=== PATIENT | female | born 1985 ===

== ENCOUNTER 2018-05-16 06:25 | Inpatient (IN) | payer OTHER ==
[2018-05-16 07:34] VITALS: BMI 29.2
[2018-05-16] MEDS ORDERED: CITRIC ACID/SODIUM CITRATE 30 ML UNIT-DOSE CUP PO ONE (07:45)
[2018-05-16] MEDS ORDERED: ELECTROLYTE-148 SOLN 500 ML IV ONE ×2 (07:45→08:15)
[2018-05-16] MEDS ORDERED: morphine SULFATE/Preservative Free 0.5 MG/ML (1cc Syringe) ONE (08:15)
[2018-05-16] MEDS ORDERED: PHENYLEPHRINE HCL 10 MG/1 ML SINGLE DOSE VIAL ONE (08:15)
--- NOTE | 2018-05-16 08:16 | HP ---
Past Medical History - Primary Care Physician PCP:: Nataly Barahona - Admission Chief Complaint: 33 yrs 40.3 weeks, previous c/section is admitted for repeat c/section History of Present Illness: pt is drop in from [place] . she brought her PNC records pt wanted trial, since she is postterm now , cx close, head is floating , cx is not favorable for vag delivery , she requests for repeat c/s PNRecords review sono 10/29/17 12.5 wks, edc assigned by sono 05/13/18 repeat sono 03/10/18 27.1/7 wks -wnl pt states she had last sono 05/05/18 labs 04/15/18 : GBS neg, gc/ct neg, Hiv neg, rpr nrHbsag neg , h/h 10.8/33.3 , Plt 192 U/A 1 + protein 01/31/18 Lyme titer neg , 1 Hr Gtt 118 12/09/17 Cherry pos, BV neg, Hiv neg, Lead neg 10/28/17 gc/ct neg , CF screen neg, O Pos, Hgb a1c 5.5 , rpr nr, Rubella immune , Hbsag neg, HgbA1 A2 , Sickle neg , Pap wnl, gc/ct neg , hpv neg History Source: Patient, Medical Record Limitations to Obtaining History: No Limitations - Past Medical History NETSUITE CONSULTANT: No: Migraine, Seizure Cardiovascular: No: HTN, Murmur Pulmonary: No: Asthma Gastrointestinal: Yes: Other (none known) Hepatobiliary: No: Hepatitis B, Hepatitis C Renal/: No: UTI ...: 3 ...Para: 1 (primary lftc/s 07/2011 9'5" at [facility], due to macrosomoa ) ...Term: 1 ...: 0 ...Spon : 0 ...Induced : 1 ...Multiple Gestation: 0 ...LMP: 08/06/17 ... Weeks Gestation by Dates: 40.1 ...EDC by Dates: 05/15/18 ...EDC by Sono: 05/13/18 (40.3 weeks by sono) Heme/Onc: Yes: Anemia (rx po Iron & PNV) Infectious Disease: No: AIDS, STD's Psych: No: Addictions, Anxiety, Bipolar, Depression, Panic, Psychosis, Schizophrenia, Other Endocrine: No: Diabetes Mellitus, Hypothyroidism - Past Surgical History Hx Myomectomy: No Hx Transabdominal Cerclage: No Additional Surgical History: left breast cystectomy,. left wrist ligament repair - Smoking History Smoking history: Never smoked Have you smoked in the past 12 months: No - Alcohol/Substance Use Hx Alcohol Use: No History of Substance Use: reports: None Home Medications - Allergies Allergies/Adverse Reactions: Allergies Allergy/AdvReac Type Severity Reaction Status Date / Time No Known Allergies Allergy Verified 05/13/18 15:20 - Home Medications Home Medications: Ambulatory Orders Ferrous Sulfate [Feosol] 1 tab PO DAILY 05/13/18 Tablet 1 tab PO DAILY 05/13/18 Physical Exam - Maternity Constitutional: Yes: Well Nourished, Obese Eyes: Yes: WNL HENT: Yes: WNL, Normocephalic Neck: Yes: WNL Cardiovascular: Yes: WNL, Regular Rate and Rhythm Lungs: Clear to auscultation Breast(s): Yes: WNL. No: Mass - Abdominal Exam/OB Fundal Height: 38 Number of Fetuses: Single Presentation: Vertex Regularity: Irregular Intensity: Unaware Monitor Mode: External (1) Heart Rate (range): 130-140 Heart Rate Location: Midline Category: I Accelerations: Uniform Decelerations: None - Vaginal Exam/OB Vaginal Bleediing: No Speculum Exam: No Dilatation (cm): close Effacement (%): unefface Amniotic Membrane Status: Intact Presentation: Vertex/Position Station: -3 - Physical Exam Musculoskeletal: Yes: WNL Extremities: Yes: WNL. No: Calf Tenderness Edema: Yes Edema: LLE: 1+, RLE: 1+ Integumentary: Yes: Incision (old pfannensteil scar) Deep Tendon Reflex Grade: Normal +2 ...Motor Strength: WNL Psychiatric: Yes: WNL, Alert, Oriented - Labs Lab Results: Laboratory Tests 05/13/18 05/13/18 05/13/18 16:00 16:00 16:00 WBC 7.9 Hgb 11.6 Hct 33.6 Plt Count 172 PT with INR 11.70 INR 0.99 PTT (Actin FS) 25.4 Sodium Potassium Chloride Carbon Dioxide BUN Creatinine Random Glucose Calcium Total Bilirubin AST ALT RPR Titer Nonreactive Hepatitis C Antibody 05/13/18 05/14/18 16:00 11:00 WBC Hgb Hct Plt Count PT with INR INR PTT (Actin FS) Sodium 138 Potassium 4.0 Chloride 107 Carbon Dioxide 22 BUN 6 L Creatinine 0.6 Random Glucose 103 Calcium 8.1 L Total Bilirubin 0.5 AST 16 ALT 16 RPR Titer Hepatitis C Antibody <0.1 Hemorrhage Risk Assessment - Risk Factors Medium Risk Factors: Yes: Prior , uterine surgery,or multiple laparotomies Risk Score: 1 Risk Level: Medium Risk Problem List - Problems (1) Post term Code(s): O48.0 - POST-TERM Qualifiers: Post-term type: 40-42 weeks gestation Qualified Code(s): O48.0 - Post-term (2) Previous section Code(s): Z98.891 - HISTORY OF UTERINE SCAR FROM PREVIOUS SURGERY Assessment/Plan 33 yrs , 40.3 weeks, previous c/section, GBS neg, drop in from [place] , not in labor for repeat C/Section . Plan Repeat LFT c/section Pt requests for placenta to be given to her .
[2018-05-16] MEDS ORDERED: OXYTOCIN 20 UNITS in 0.9% NS 40 UNIT/2,000 ML INFUS.BAG IV ONE (08:18)
[2018-05-16] MEDS ORDERED: ONDANSETRON 4 MG/2 ML VIAL IVPUSH PRN (08:31)
[2018-05-16] MEDS ORDERED: ACETAMINOPHEN 325 MG TABLET (FP) PO PRN (08:31)
[2018-05-16] MEDS: OXYTOCIN 20 UNITS in 0.9% NS 20 UNIT/1,000 ML INFUS.BAG IV SCH (08:45)
[2018-05-16] MEDS ORDERED: MIDAZOLAM HCL 2 MG/2 ML SINGLE DOSE VIAL ONE (08:53)
[2018-05-16 09:52] LABS: ARTERIAL BLD GAS O2 SATURATION 43.1 % (90-98.9); ARTERIAL BLOOD GAS BASE EXCESS -2.1 meq/l (-2-2); ARTERIAL BLOOD GAS PCO2 42.8 mmHg (35-45); ARTERIAL BLOOD GAS PO2 23.5 mmHg (80-100); ARTERIAL BLOOD GAS pH 7.35 (7.35-7.45)
[2018-05-16 09:55] LABS: VENOUS PH 7.35 (7.32-7.42); VENOUS PO2 26.8 mmHg (28-48)
[2018-05-16] MEDS ORDERED: METHYLERGONOVINE MALEATE 0.2 MG/1 ML AMP IM PRN (10:07)
--- NOTE | 2018-05-16 10:19 | OP ---
Operative Note - Note: Operative Date: 05/16/18 Pre-Operative Diagnosis: 40.3 weeks, previous c/section, Operation: Repeat LFTC/Section Findings: 8.43 AM, Baby Boy, Vx, Lot position, 9/9, wT 8'14", Ht 20" both tubes & ovaries normal Darren Horton Furnace Erector present in the OR Surgeon: Nataly Barahona Fruit And Vegetable Parer: Artis Morel Anesthesiologist/TAX EXAMINING TECHNICIAN: Lino Lee Anesthesia: Spinal Specimens Removed: cord segment for cord gas. cord blood. placenta Estimated Blood Loss (mls): 600 Drains, Volume Out (mls): 100 (cash color , bray output) Fluid Volume Replaced (mls): 1,700 (2gm Iv Ancef prior to incision ) Operative Report Dictated: Yes
--- NOTE | 2018-05-16 10:30 | PN ---
Delivery - Delivery Section: Repeat, Low Flap Transverse Type of Anesthesia: Spinal EBL (cc): 600 (intraop bray out put 100 ml cash color ) Delivery, Single - Stages of Labor Date of Delivery: 05/23/18 Time of Delivery: 08:43 Date Placenta Delivered: 05/16/18 Time Placenta Delivered: 08:45 - Condition of Social Services/Special Service Representative Present: Yes Name: Sol Ma Infant Gender: Male Weight: 8 lb 14 oz Position: Left, OT Total Hours ROM (Hrs/Mins): 2 min - 1 Minute Total Score: 9 5 Minutes Total Score: 9 - Feeding Plan Initial Plan: Exclusive throughout hospitalization Remarks - Remarks Remarks: 33 Yrs , 40.3 weeks , previous c/section , gbs neg, hbsag neg, hep -c neg hiv neg . PNC in [place] Indication : posterm (40.3 weeks ) , previous c/section Intraop course uneventful
--- NOTE | 2018-05-16 10:59 | OP ---
DATE OF OPERATION: 05/16/2018 PREOPERATIVE DIAGNOSES: 40.3 weeks, previous section. OPERATION: Repeat low flap transverse section. SURGEON: Nataly Barahona MD EXPANDER MACHINE OPERATOR: ESTHER Lauren ANESTHESIOLOGIST: Lino Lee MD ANESTHESIA: Spinal. RADIO PROGRAM DIRECTOR: Sol Ma MD FINDINGS: This is a 33-year-old 3, para 1-0-1-1 not in labor and she is post term. Requested repeat section. PROCEDURE: Abdomen was shaved, prepped. Chawla catheter was placed. She was taken to the operating room table and spinal anesthesia was given. She was placed in supine position. Abdomen was painted and draped in usual manner. Pfannenstiel incision was made. The skin, subcutaneous tissue, anterior rectus sheath were incised transversely. Bleeding points were clamped and cauterized. Rectus muscle was from the rectus sheath. Parietal peritoneum was opened vertically. Low flap of the peritoneum was incised transversely. Then lower uterine segment was incised transversely. Amniotic fluid was clear and the baby was delivered at 8:43 a.m. from LOT position. was 9, 9 and baby's weight was 8 pounds and 14 ounces. Cord was clamped, cut. Cord blood was collected. Cord segment was sent for the ABG also. Placenta was removed completely with the membranes. The uterine cavity was cleaned and uterine incision was closed in 2 layers. First layer was closed with a continuous locking Biosyn 0 suture. Second layer was closed with a continuous intermittently locking Biosyn 0 suture. Hemostasis was achieved and the bladder peritoneum was closed with interrupted sutures with Biosyn 0 suture. Both tubes and ovaries were normal and sponge and instrument count was correct. Irrigation was done. Then the abdominal cavity was closed. Peritoneum parietal was closed with a Vicryl 0 suture. Continuous sutures were taken. Hemostasis was checked underneath the rectus sheath flap. Anterior rectus sheath was closed with 0 Vicryl suture. Continuous sutures were taken. Subcutaneous tissue hemostasis was checked and verified. Skin was mobilized from underneath scar. Subcutaneous tissue was approximated with Vicryl 0 suture. Interrupted sutures were taken. The skin was approximated with staple. Pressure dressing was given. Blood clots were removed from the vagina. Estimated blood loss was 600 mL. Urine output was 100 mL. It was cash colored and she received 2 g of IV Ancef prior to the incision. Emerita [id number]
[2018-05-16] MEDS ORDERED: IBUPROFEN 800 MG/8 ML IJ IVPB ONE (12:20)
[2018-05-16] MEDS: IBUPROFEN 800 MG/8 ML IJ IVPB PRN ×2 (12:31→20:07)
[2018-05-16] MEDS: CEFAZOLIN 1 GM/D5W 1 GM/50 ML BAG IVPB SCH (18:04)
[2018-05-16] MEDS: FERROUS SO4 325 MG TABLET (FP) PO SCH (19:25)
[2018-05-17] MEDS: ACETAMINOPHEN 325 MG TABLET (FP) PO PRN ×6 (01:08→22:16)
[2018-05-17] MEDS: SIMETHICONE 80 MG TAB.CHEW (FP) PO PRN ×6 (01:09→22:15)
[2018-05-17] MEDS: IBUPROFEN 600 MG TABLET (FP) PO PRN ×6 (01:09→22:16)
[2018-05-17] MEDS: CEFAZOLIN 1 GM/D5W 1 GM/50 ML BAG IVPB SCH ×2 (01:09→09:53)
[2018-05-17] MEDS: OXYTOCIN 20 UNITS in 0.9% NS 20 UNIT/1,000 ML INFUS.BAG IV SCH ×2 (01:34→20:10)
--- NOTE | 2018-05-17 05:56 | PN ---
Post Progress Note - Subjective Subjective: c/o painscale 01/06 she has not voided after bray catheter is taken out not passing flatus yet Post Day: 1 Type of Delivery: Repeat C/S Vital Signs: Vital Signs Temperature 97.8 F 05/17/18 02:00 Pulse Rate 88 05/17/18 02:00 Respiratory Rate 05/17/18 05:00 Blood Pressure 99/68 05/17/18 02:00 O2 Sat by Pulse Oximetry (%) 100 05/16/18 10:40 Breast Exam: Yes: Soft, Other (BF ). No: Engorged Uterus: Yes: Fundus Firm, Fundus below umbilicus, Non-tender Incision: Yes: Dressing dry and intact. No: Redness, Oozing Abdomen/GI: Yes: Abdomen soft (BS active ), Tolerating PO (clear fluid ). No: Abdominal Distention, Tender, Passing flatus Lochia: Yes: Rubra Lochia, amount: Moderate Extremities: Yes: Calves non-tender. No: Edema Perineum: Yes: Intact Activity: Other (pt oob to bathroom once ) Other Findings, Remarks: rs cta I/O , adequate urine out put 3150 ml Problem List - Problems (1) Post term Code(s): O48.0 - POST-TERM Qualifiers: Post-term type: 40-42 weeks gestation Qualified Code(s): O48.0 - Post-term (2) Previous section Code(s): Z98.891 - HISTORY OF UTERINE SCAR FROM PREVIOUS SURGERY (3) delivery delivered Code(s): O82 - ENCOUNTER FOR DELIVERY WITHOUT INDICATION (4) Encounter for assessment Code(s): Z39.2 - ENCOUNTER FOR ROUTINE FOLLOW-UP Assessment/Plan stable s/p repeat c/s Plan encourage po fluids, deep breathing, ambulation post op cbc today pending
[2018-05-17] MEDS: oxyCODONE HCL 5 MG TABLET PO PRN ×6 (06:05→22:16)
[2018-05-17 08:16] LABS: BASO % 0.5 % (0-2.0); EOS % 0.6 % (0-4.5); HEMATOCRIT 29.9 % (32.4-45.2); HEMOGLOBIN 9.9 GM/dL (10.7-15.3); MCH 29.8 pg (25.7-33.7); MCHC 33.1 g/dl (32.0-36.0); MEAN CELL VOLUME 90.1 fl (80-96); MEAN PLT VOLUME 8.9 fl (7.5-11.1); MONO % 8.3 % (3.8-10.2); NEUT % 78.6 % (42.8-82.8); PLATELET COUNT 122 K/MM3 (134-434); RBC 3.32 M/mm3 (3.60-5.2); RDW 14.8 % (11.6-15.6); WHITE BLOOD COUNT 11.8 K/mm3 (4.0-10.0)
[2018-05-17] MEDS: FERROUS SO4 325 MG TABLET (FP) PO SCH ×2 (09:31→17:46)
[2018-05-17] MEDS: ENOXAPARIN NA (PORCINE) 40 MG/0.4 ML DISP.SYRIN SQ SCH ×2 (09:54→10:00)
[2018-05-17] MEDS: PRENATAL VITAMINS W/ FOLIC ACID TABLET (FP) PO SCH (09:55)
[2018-05-17] MEDS: BISACODYL 10 MG SUPP.RECT RC PRN (10:03)
--- NOTE | 2018-05-17 14:12 | PN ---
Progress Note, Physician Chief Complaint: s/p c section under spinal anesthesia post op day one History of Present Illness: duramorph for post op pain control with spinal anesthesia - Current Medication List Current Medications: Active Medications Acetaminophen (Tylenol -) 650 mg PO Q4H PRN PRN Reason: PAIN LEVEL 1-3 Last Admin: 05/17/18 10:04 Dose: 650 mg Bisacodyl (Dulcolax Suppository -) 10 mg RC PRN PRN PRN Reason: CONSTIPATION Last Admin: 05/17/18 10:03 Dose: 10 mg Diphenhydramine HCl (Benadryl Injection -) 25 mg IVPUSH Q4H PRN PRN Reason: Pruritis Last Admin: 05/17/18 01:34 Dose: 25 mg Enoxaparin Sodium (Lovenox -) 40 mg SQ DAILY [facility] Last Admin: 05/17/18 10:00 Dose: Not Given Ferrous Sulfate (Feosol -) 325 mg PO BIDWM [facility] Last Admin: 05/17/18 09:31 Dose: Not Given Cefazolin Sodium (Ancef 1 Gm Premixed Ivpb -) 1 gm in 50 mls @ 100 mls/hr IVPB Q8H-IV ALTAF Stop: 05/17/18 17:59 Last Admin: 05/17/18 09:53 Dose: 100 mls/hr Oxytocin/Sodium Chloride (Normal Saline+20 Units Oxytocin -) 20 unit in 1,000 mls @ 125 mls/hr IV ASDIR [facility] Last Admin: 05/17/18 01:34 Dose: 125 mls/hr Ibuprofen (Motrin -) 600 mg PO Q4H PRN PRN Reason: PAIN 1-3;IF TYLENOL NT WRK Last Admin: 05/17/18 10:04 Dose: 600 mg Methylergonovine Maleate (Methergine Injection -) 0.2 mg IM Q4H PRN PRN Reason: Excessive Bleeding (L&D) Ondansetron HCl (Zofran Injection) 4 mg IVPUSH Q4H PRN PRN Reason: NAUSEA Oxycodone HCl (Roxicodone -) 5 mg PO Q4H PRN PRN Reason: PAIN LEVEL 4 - 6 Last Admin: 05/17/18 10:03 Dose: 5 mg Oxycodone HCl (Roxicodone -) 10 mg PO Q4H PRN PRN Reason: PAIN LEVEL 7 - 10 Multivit/Folic Acid/Iron ( Vitamins (Sjr) -) 1 tab PO DAILY ALTAF Last Admin: 05/17/18 09:55 Dose: Not Given Senna/Docusate Sodium (Pericolace -) 2 tablet PO HS PRN PRN Reason: CONSTIPATION Simethicone (Mylicon -) 80 mg PO Q4H PRN PRN Reason: GAS Last Admin: 05/17/18 10:05 Dose: 80 mg - Objective Vital Signs: Vital Signs Temperature 98.5 F 05/17/18 06:00 Pulse Rate 87 05/17/18 06:00 Respiratory Rate 18 05/17/18 06:00 Blood Pressure 114/74 05/17/18 06:00 O2 Sat by Pulse Oximetry (%) 100 05/16/18 10:40 Constitutional: Yes: Well Nourished Cardiovascular: Yes: WNL Respiratory: Yes: WNL Gastrointestinal: Yes: WNL Labs: CBC, BMP 05/17/18 07:15 Assessment/Plan No acute complications of anesthesia. Dept of anesthesia will sign off care at this time.
[2018-05-17] MEDS ORDERED: ZOLPIDEM TARTRATE 5 MG TABLET PO PRN (20:50)
[2018-05-17] MEDS: SENNOSIDES/DOCUSATE COMBO (SENNA PLUS) TABLET (UD) PO PRN (22:15)
[2018-05-18] MEDS: ACETAMINOPHEN 325 MG TABLET (FP) PO PRN ×2 (06:17→21:09)
[2018-05-18] MEDS: IBUPROFEN 600 MG TABLET (FP) PO PRN ×5 (06:17→21:09)
[2018-05-18] MEDS: oxyCODONE HCL 5 MG TABLET PO PRN ×5 (06:17→21:09)
[2018-05-18] MEDS: SIMETHICONE 80 MG TAB.CHEW (FP) PO PRN ×4 (06:26→21:08)
--- NOTE | 2018-05-18 06:41 | PN ---
Post Progress Note - Subjective Subjective: c/o pain scale 10/10 . last pain meds taken at 10.00 PM pt took Ambien last night for sleeping bm done c/o gaseous discomfort voiding without difficulty Post Day: 2 Type of Delivery: Repeat C/S Vital Signs: Vital Signs Temperature 98.2 F 05/17/18 22:00 Pulse Rate 100 H 05/17/18 22:00 Respiratory Rate 18 05/17/18 22:00 Blood Pressure 108/66 05/17/18 22:00 O2 Sat by Pulse Oximetry (%) 100 05/16/18 10:40 Breast Exam: Yes: Soft, Other (BF ). No: Engorged Uterus: Yes: Fundus Firm, Fundus below umbilicus, Non-tender Incision: Yes: [place] intact, Other (dressing removed, dry ). No: Redness, Oozing Abdomen/GI: Yes: Abdomen soft (bs active ), Passing flatus, Tolerating PO (diet ). No: Abdominal Distention, Tender Lochia: Yes: Rubra Lochia, amount: Moderate Extremities: Yes: Calves non-tender Perineum: Yes: Intact Activity: Ambulating - Labs Labs: CBC WBC 11.8 K/mm3 (4.0-10.0) H 05/17/18 07:15 RBC 3.32 M/mm3 (3.60-5.2) L 05/17/18 07:15 Hgb 9.9 GM/dL (10.7-15.3) L 05/17/18 07:15 Hct 29.9 % (32.4-45.2) L 05/17/18 07:15 MCV 90.1 fl (80-96) 05/17/18 07:15 MCH 29.8 pg (25.7-33.7) 05/17/18 07:15 MCHC 33.1 g/dl (32.0-36.0) 05/17/18 07:15 RDW 14.8 % (11.6-15.6) 05/17/18 07:15 Plt Count 122 K/MM3 (134-434) L D 05/17/18 07:15 MPV 8.9 fl (7.5-11.1) 05/17/18 07:15 Absolute Neuts (auto) 9.3 K/mm3 (1.5-8.0) H 05/17/18 07:15 Neutrophils % 78.6 % (42.8-82.8) 05/17/18 07:15 Lymphocytes % 12.0 % (8-40) D 05/17/18 07:15 Monocytes % 8.3 % (3.8-10.2) 05/17/18 07:15 Eosinophils % 0.6 % (0-4.5) D 05/17/18 07:15 Basophils % 0.5 % (0-2.0) 05/17/18 07:15 Nucleated RBC % 0 % (0-0) 05/17/18 07:15 Problem List - Problems (1) Post term Code(s): O48.0 - POST-TERM Qualifiers: Post-term type: 40-42 weeks gestation Qualified Code(s): O48.0 - Post-term (2) Previous section Code(s): Z98.891 - HISTORY OF UTERINE SCAR FROM PREVIOUS SURGERY (3) delivery delivered Code(s): O82 - ENCOUNTER FOR DELIVERY WITHOUT INDICATION (4) Encounter for assessment Code(s): Z39.2 - ENCOUNTER FOR ROUTINE FOLLOW-UP Assessment/Plan pt stable pain meds more frequent encourge ambulation, deep breathing , po fluids
[2018-05-18] MEDS: FERROUS SO4 325 MG TABLET (FP) PO SCH ×2 (07:51→17:30)
[2018-05-18] MEDS: PRENATAL VITAMINS W/ FOLIC ACID TABLET (FP) PO SCH (10:35)
[2018-05-18] MEDS: ENOXAPARIN NA (PORCINE) 40 MG/0.4 ML DISP.SYRIN SQ SCH ×2 (10:35→10:42)
[2018-05-18] MEDS: SENNOSIDES/DOCUSATE COMBO (SENNA PLUS) TABLET (UD) PO PRN (21:08)
[2018-05-19] MEDS: oxyCODONE HCL 5 MG TABLET PO PRN ×2 (04:12→23:15)
[2018-05-19] MEDS: ACETAMINOPHEN 325 MG TABLET (FP) PO PRN ×5 (04:12→23:15)
[2018-05-19] MEDS: IBUPROFEN 600 MG TABLET (FP) PO PRN ×5 (04:12→23:14)
[2018-05-19] MEDS: SIMETHICONE 80 MG TAB.CHEW (FP) PO PRN ×5 (04:12→23:15)
[2018-05-19 07:59] LABS: BASO % 0.7 % (0-2.0); EOS % 1.7 % (0-4.5); HEMATOCRIT 27.5 % (32.4-45.2); HEMOGLOBIN 9.3 GM/dL (10.7-15.3); MCH 30.1 pg (25.7-33.7); MCHC 33.8 g/dl (32.0-36.0); MEAN CELL VOLUME 89.2 fl (80-96); MEAN PLT VOLUME 8.5 fl (7.5-11.1); NEUT % 73.6 % (42.8-82.8); PLATELET COUNT 151 K/MM3 (134-434); RBC 3.08 M/mm3 (3.60-5.2); RDW 14.7 % (11.6-15.6); WHITE BLOOD COUNT 7.9 K/mm3 (4.0-10.0)
--- NOTE | 2018-05-19 08:32 | PN ---
Post Progress Note - Subjective Subjective: pt c/o pain in incision area 10/06 c/o breast engorgement Post Day: 3 Type of Delivery: Repeat C/S Vital Signs: Vital Signs Temperature 98.3 F 05/18/18 22:00 Pulse Rate 79 05/18/18 22:00 Respiratory Rate 18 05/18/18 22:00 Blood Pressure 109/70 05/18/18 22:00 O2 Sat by Pulse Oximetry (%) 100 05/16/18 10:40 Breast Exam: Yes: Soft, Engorged (nipples tender ), Other (baby not taking enough breast milk , pt bottle feeding also ) Uterus: Yes: Fundus Firm, Fundus below umbilicus ( tender ) Incision: Yes: [place] intact. No: Redness, Oozing, Other Abdomen/GI: Yes: Abdomen soft, Tender, Passing flatus (bm done ), Tolerating PO (diet ). No: Abdominal Distention Lochia: Yes: Rubra Lochia, amount: Small Extremities: Yes: Calves non-tender Perineum: Yes: Intact Activity: Ambulating - Labs Labs: CBC WBC 7.9 K/mm3 (4.0-10.0) 05/19/18 07:45 RBC 3.08 M/mm3 (3.60-5.2) L 05/19/18 07:45 Hgb 9.3 GM/dL (10.7-15.3) L 05/19/18 07:45 Hct 27.5 % (32.4-45.2) L 05/19/18 07:45 MCV 89.2 fl (80-96) 05/19/18 07:45 MCH 30.1 pg (25.7-33.7) 05/19/18 07:45 MCHC 33.8 g/dl (32.0-36.0) 05/19/18 07:45 RDW 14.7 % (11.6-15.6) 05/19/18 07:45 Plt Count 151 K/MM3 (134-434) D 05/19/18 07:45 MPV 8.5 fl (7.5-11.1) 05/19/18 07:45 Absolute Neuts (auto) 5.8 K/mm3 (1.5-8.0) 05/19/18 07:45 Neutrophils % 73.6 % (42.8-82.8) 05/19/18 07:45 Lymphocytes % 16.0 % (8-40) D 05/19/18 07:45 Monocytes % 8.0 % (3.8-10.2) 05/19/18 07:45 Eosinophils % 1.7 % (0-4.5) D 05/19/18 07:45 Basophils % 0.7 % (0-2.0) 05/19/18 07:45 Nucleated RBC % 0 % (0-0) 05/19/18 07:45 Problem List - Problems (1) Post term Code(s): O48.0 - POST-TERM Qualifiers: Post-term type: 40-42 weeks gestation Qualified Code(s): O48.0 - Post-term (2) Previous section Code(s): Z98.891 - HISTORY OF UTERINE SCAR FROM PREVIOUS SURGERY (3) delivery delivered Code(s): O82 - ENCOUNTER FOR DELIVERY WITHOUT INDICATION (4) Encounter for assessment Code(s): Z39.2 - ENCOUNTER FOR ROUTINE FOLLOW-UP Assessment/Plan stable . Plan ct po care use breast pump discharge tomorrow.
[2018-05-19] MEDS: FERROUS SO4 325 MG TABLET (FP) PO SCH ×2 (09:33→17:43)
[2018-05-19] MEDS: PRENATAL VITAMINS W/ FOLIC ACID TABLET (FP) PO SCH (09:33)
[2018-05-19] MEDS: ENOXAPARIN NA (PORCINE) 40 MG/0.4 ML DISP.SYRIN SQ SCH (09:52)
[2018-05-19] MEDS: BISACODYL 10 MG SUPP.RECT RC PRN (18:43)
[2018-05-19] MEDS: SENNOSIDES/DOCUSATE COMBO (SENNA PLUS) TABLET (UD) PO PRN (23:15)
[2018-05-20] MEDS: IBUPROFEN 600 MG TABLET (FP) PO PRN (07:36)
[2018-05-20] MEDS: oxyCODONE HCL 5 MG TABLET PO PRN (07:36)
[2018-05-20] MEDS: SIMETHICONE 80 MG TAB.CHEW (FP) PO PRN (07:37)
[2018-05-20] MEDS: FERROUS SO4 325 MG TABLET (FP) PO SCH (08:08)
[2018-05-20 08:18] VITALS: BP 125/74; PULSE 75; TEMP 98.1
[2018-05-20] MEDS: PRENATAL VITAMINS W/ FOLIC ACID TABLET (FP) PO SCH (08:59)
[2018-05-20] MEDS: ENOXAPARIN NA (PORCINE) 40 MG/0.4 ML DISP.SYRIN SQ SCH (10:00)
--- NOTE | 2018-05-20 15:02 | DS ---
Physical Exam-MOUNTING INSPECTOR Vital Signs: Vital Signs Temperature 98.1 F 05/20/18 07:20 Pulse Rate 75 05/20/18 07:20 Respiratory Rate 18 05/20/18 07:20 Blood Pressure 125/74 05/20/18 07:20 O2 Sat by Pulse Oximetry (%) 100 05/16/18 10:40 Constitutional: Yes: Well Nourished Eyes: Yes: Conjunctiva Clear HENT: Yes: Atraumatic Neck: Yes: Supple Cardiovascular: Yes: Regular Rate and Rhythm Respiratory: Yes: Regular Gastrointestinal: Yes: Normal Bowel Sounds External Genitalia: Yes: Normal Vaginal Exam: Yes: Normal Cervix: Yes: Normal Uterus: Yes: Normal Wound/Incision: Yes: Well Approximated, Marine Removed Neurological: Yes: Alert, Oriented Psychiatric: Yes: Alert, Oriented Labs: CBC, BMP 05/19/18 07:45 Delivery - Delivery Section: Repeat, Low Flap Transverse Type of Anesthesia: Spinal Episiotomy/Laceration: None EBL (cc): 600 (intraop bray out put 100 ml cash color ) Delivery, Single - Stages of Labor Date of Delivery: 05/23/18 Time of Delivery: 08:43 Time Placenta Delivered: 08:45 - Condition of Infant Seating Upholsterer/Customs Compliance Manager Present: Yes Name: Sol Ma Infant Gender: Male Weight: 8 lb 14 oz Position: Left, OT Total Hours ROM (Hrs/Mins): 2 min - 1 Minute Total Score: 9 5 Minutes Total Score: 9 - Feeding Plan Initial Plan: Exclusive throughout hospitalization Discharge Summary Reason For Visit: ADMIT - C/S Procedures: Principal: Repeat Low Transverse Hospital Course: Post op care, marine removal. Condition: Stable - Instructions Diet, Activity, Other Instructions: Post Instructions DIET: Continue good diet high in protein, calcium, and iron rich foods. Drink at least eight (8) glasses of water daily in addition to other fluids. ___ Regular diet MEDICATIONS: Continue vitamins and iron as previously directed. Motrin and Tylenol may be taken for minor discomfort. ACTIVITY: Mild to moderate exercise may be started in two (2) weeks. Take frequent rest periods. Resume normal activity after six (6) week check up. WOUND CARE OF OPERATIVE SITE: Continue use of perineal bottle until vaginal discharge stops. Keep area clean. Shower daily. Keep abdominal wound dry. Report any drainage or redness to physician. Tub baths, tampons and douches are not permitted for [address] Breast feeding & or Bottle feeding BREAST CARE: (For those that are not breast feeding): If engorgement occurs: Wear tight fitting bra. Take Tylenol or Motrin for pain. Apply cold packs (ice in bags to each breast ) FAMILY PLANNING: There are many control alternatives to pursue and they should be discussed at your first office visit. You may resume sexual activity after your six (6) week check up. (Remember, breast feeding is not a contraceptive) NEXT PHYSICIAN APPOINTMENT: Be certain to call for a one (1) week appointment, unless otherwise directed. wound check Call [phone] Barahona on Saturday. Call Clinic or got to Emergency Dept if you have any of the following: Heavy vaginal bleeding Painful urination Leg pain Unusual odor noted to vaginal bleeding High fever Red streaking noted on breast Referrals: Nataly Barahona MD [Staff Physician] - Disposition: HOME - Home Medications Comprehensive Discharge Medication List: Ambulatory Orders Ferrous Sulfate [Feosol] 1 tab PO DAILY 05/13/18 Tablet 1 tab PO DAILY 05/13/18 Acetaminophen [Tylenol .Regular Strength -] 500 mg PO Q4H PRN #30 tablet Ferrous Sulfate [Feosol] 325 mg PO BIDWM #60 tab 05/18/18 Ibuprofen [Motrin -] 600 mg PO Q4H PRN #30 tablet 05/18/18 Vitamins (Sjr) - 1 tab PO DAILY #30 tablet 05/18/18
== END 2018-05-20 13:45 | disposition home or self-care (01) | DRG 788 ==
LOC: JLDR 06:25 → J3W 13:14
PROVIDERS: ADMIT Obstetrics & Gynecology; ATTEND Obstetrics & Gynecology
PROC: 10D00Z1 Extraction of Products of Conception, Low, Open Approach (ICD-10-PCS; principal; 2018-05-16)
DX: O48.0 Post-term pregnancy (principal); Z3A.40 40 weeks gestation of pregnancy; O34.219 Maternal care for unspecified type scar from previous cesarean delivery; Z37.0 Single live birth
CPT/HCPCS: 36415; 36600; 82803; 85025

== ENCOUNTER 2020-07-30 23:00 | Emergency (ER) | payer OTHER ==
[2020-07-30 23:24] VITALS: BP 132/82; PULSE 95; TEMP 98.4; BMI 23.1
[2020-07-31] MEDS ORDERED: IBUPROFEN 400 MG TABLET (FP) PO ONE ×2 (00:29→00:37)
[2020-07-31] MEDS ORDERED: LIDOCAINE 5% TOPICAL PATCH TP ONE (00:29)
[2020-07-31] MEDS ORDERED: LIDOCAINE 5% TOPICAL PATCH ONE (00:38)
[2020-07-31] MEDS ORDERED: LIDOCAINE PATCH REMOVAL MC SCH (22:00)
== END 2020-07-31 00:56 | disposition home or self-care (01) ==
LOC: JER 23:00
DX: M54.2 Cervicalgia (principal); R51.9 Headache, unspecified
CPT/HCPCS: 99283-25

== ENCOUNTER 2024-12-26 23:49 | Emergency (ER) | payer OTHER ==
[2024-12-26 23:57] VITALS: BP 136/85; PULSE 78; RESP 18; TEMP 98.2; BMI 27.1
[2024-12-27] MEDS ORDERED: PSEUDOEPHEDRINE HCL 30 MG TABLET PO ONE (01:22)
[2024-12-27] MEDS ORDERED: diphenhydrAMINE HCL 25 MG CAPSULE (FP) PO ONE (01:26)
[2024-12-27] MEDS ORDERED: PSEUDOEPHEDRINE HCL 60 MG TABLET ONE (01:28)
[2024-12-27] MEDS: diphenhydrAMINE HCL 25 MG CAPSULE (FP) PO ONE (01:36)
[2024-12-27] MEDS: OXYMETAZOLINE 0.05% NASAL SOLUTION 15 ML BOTTLE NS ONE (01:36)
[2024-12-27] MEDS: PSEUDOEPHEDRINE HCL 30 MG TABLET PO ONE (01:37)
== END 2024-12-27 01:52 | disposition home or self-care (01) ==
LOC: JER 23:49
DX: H92.01 Otalgia, right ear (principal); R05.9 Cough, unspecified; R09.81 Nasal congestion
CPT/HCPCS: 99283-25